=== PATIENT | male | born 1995 | race Two or more races ===

== ENCOUNTER 2016-09-12 09:34 | Emergency (ER) | payer MEDICAID ==
[~2016-09-12] VITALS: Ht 167.6 cm; Wt 97.3 kg
[2016-09-12 12:18] VITALS: BP 142/76
== END 2016-09-12 12:21 | disposition home or self-care (01) ==
LOC: ER 09:34
DX: S39.011A Strain of muscle, fascia and tendon of abdomen, initial encounter (principal); X58.XXXA Exposure to other specified factors, initial encounter; Y93.89 Activity, other specified; Y99.8 Other external cause status; Y92.89 Other specified places as the place of occurrence of the external cause

== ENCOUNTER 2017-07-19 11:47 | Emergency (ER) | payer MEDICAID ==
[2017-07-19 11:51] VITALS: BP 137/81
== END 2017-07-19 13:37 | disposition home or self-care (01) ==
LOC: ER 11:47
DX: S86.912A Strain of unspecified muscle(s) and tendon(s) at lower leg level, left leg, initial encounter (principal); I83.92 Asymptomatic varicose veins of left lower extremity; X50.9XXA Other and unspecified overexertion or strenuous movements or postures, initial encounter; Y93.89 Activity, other specified; Y92.89 Other specified places as the place of occurrence of the external cause; Y99.8 Other external cause status
CPT/HCPCS: 93971

== ENCOUNTER 2022-10-10 23:33 | Emergency (ER) | payer MEDICAID, OTHER ==
[~2022-10-10] VITALS: Ht 167.6 cm; Wt 109.1 kg
[2022-10-11 00:38] VITALS: BP 145/80
== END 2022-10-11 05:03 | disposition home or self-care (01) ==
LOC: ER 23:53
DX: S62.515A Nondisplaced fracture of proximal phalanx of left thumb, initial encounter for closed fracture (principal); S60.512A Abrasion of left hand, initial encounter; V43.52XA Car driver injured in collision with other type car in traffic accident, initial encounter; Y93.89 Activity, other specified; Y92.488 Other paved roadways as the place of occurrence of the external cause; Y99.8 Other external cause status
CPT/HCPCS: 73130; 73590